=== PATIENT | female | born 1930 | race Caucasian/White ===

== ENCOUNTER 2016-12-07 21:26 | Inpatient (IN) | payer MEDICARE, MEDICAID ==
[~2016-12-07] VITALS: Ht 162.6 cm; Wt 62.6 kg
[2016-12-07] MEDS ORDERED: ASPIRIN 81MG TABLET PO STA (21:44)
[2016-12-07] MEDS ORDERED: FUROSEMIDE 40MG/4ML VIAL IV STA (21:44)
[2016-12-07] MEDS ORDERED: METHYLPREDNISOLONE SOD SUCC 125 MG/2 ML VIAL IV STA (21:44)
[2016-12-07] MEDS ORDERED: LEVOFLOXACIN 750MG PREMIX 150 ML IV ONE (21:45)
[2016-12-07] MEDS ORDERED: IPRATROPIUM/ALBUTEROL 0.5-3(2.5)MG/3ML NEB HHN ONE (21:45)
[2016-12-07 22:36] LABS: BG BASE EXCESS -0.2 mmol/L (-2.0-2.0); BG BILEVEL POS AIRWAY PRESSURE 15/5; BG CARBOXYHEMOGLOBIN 0.8 % (0.5-1.5); BG DEOXYHEMOGLOBIN 3.6 % (0.0-5.0); BG FRACTION INSPIRED OXYGEN 80; BG HCO3 ACT 24.3 mmol/L (22.0-26.0); BG METHEMOGLOBIN 0.2 % (0.0-1.5); BG OXYGEN SATURATION 96.4 % (92.0-98.5); BG OXYHEMOGLOBIN 95.4 % (94.0-97.0); BG PCO2 39.4 mmHg (35.0-45.0); BG PH 7.408 (7.350-7.450); BG PO2 84.1 mmHg (75.0-100.0); BG SAMPLE SITE RIGHT BRACHIAL; BG TOTAL HEMOGLOBIN 14.6 g/dL (12.0-18.0); BG VENT MODE MASK - BIPAP; BG VENT RATE 16 set
[2016-12-07 22:42] LABS: BASOPHILS % 0.4 % (0.0-2.0); EOSINOPHILS % 0.4 % (0.0-5.0); HEMATOCRIT. 43.4 % (36.0-48.0); LYMPHOCYTES % 13.2 % (20.0-50.0); MEAN CORPUSCULAR HEMOGLOBIN 27.1 pg (28.0-32.0); MEAN CORPUSCULAR VOLUME 83.7 fL (81.0-99.0); MEAN PLATELET VOLUME 9.5 fl (7.4-10.4); MONOCYTES % 3.4 % (2.0-8.0); NEUTROPHILS % 82.6 % (40.0-76.0); PLATELET 245 x1000/uL (130-400); RED BLOOD CELL COUNT 5.18 mill/uL (4.2-5.4); RED CELL DISTRIBUTION WIDTH 15.4 % (11.6-14.6)
[2016-12-07 22:45] LABS: INR 1.1; PARTIAL THROMBOPLASTIN TIME 27.3 sec (23.4-31.0); PROTHROMBIN TIME 11.5 sec (9.4-11.6)
[2016-12-07 22:49] LABS: CARBON DIOXIDE 26 mEq/L (21-32); CHLORIDE 103 mEq/L (98-107)
[2016-12-07 22:54] LABS: CREATINE KINASE 108 IU/L (26-192)
[2016-12-07 22:56] LABS: TROPONIN I 0.05 ng/mL (0.00-0.04)
[2016-12-08] VITALS (11 sets, daily range): BP systolic 101–147; BP diastolic 56–95
[2016-12-08] MEDS ORDERED: ONDANSETRON HCL 4MG/2ML VIAL IV ONE (00:30)
[2016-12-08] MEDS ORDERED: MORPHINE SULFATE 4 MG/ML CPJ (NOT FOR IM USE) IV ONE (00:30)
[2016-12-08] MEDS ORDERED: FENTANYL CITRATE/PF 50MCG/ML 2ML VIAL IV ONE (01:00)
[2016-12-08] MEDS: PANTOPRAZOLE 40MG DR TABLET PO SCH (07:10)
[2016-12-08] MEDS: METHYLPREDNISOLONE SOD SUCC 40 MG/ML VIAL IV SCH ×3 (07:10→17:47)
[2016-12-08] MEDS: IPRATROPIUM/ALBUTEROL 0.5-3(2.5)MG/3ML NEB HHN SCH ×3 (08:38→15:53)
[2016-12-08] MEDS ORDERED: ENOXAPARIN 40MG/0.4ML SYR SUBCUT SCH (09:00)
[2016-12-08] MEDS: HYDROCODONE/ACETAMINOPHEN 5/325MG TABLET PO PRN ×3 (09:23→22:04)
[2016-12-08] MEDS ORDERED: ONDANSETRON HCL 4MG/2ML VIAL IV PRN (19:15)
[2016-12-08] MEDS: APIXABAN 5 MG TABLET PO SCH (19:46)
[2016-12-08] MEDS: FUROSEMIDE 40MG/4ML VIAL IV SCH (19:47)
[2016-12-08] MEDS: POTASSIUM CHLORIDE 20MEQ TABLET SR PO SCH (19:47)
[2016-12-08] MEDS: IPRATROPIUM/ALBUTEROL 0.5-3(2.5)MG/3ML NEB INH SCH (20:22)
[2016-12-08] MEDS: DILTIAZEM HCL 60MG TABLET PO SCH (22:00)
[2016-12-08 23:30] LABS: CREATINE KINASE MB FRACTION 2.1 ng/mL (0.5-3.6); TROPONIN I 0.13 ng/mL (0.00-0.04)
[2016-12-09] VITALS (12 sets, daily range): BP systolic 98–129; BP diastolic 50–93
[2016-12-09] MEDS ORDERED: IOHEXOL-350 100 ML BOTTLE ONE (06:00)
[2016-12-09] MEDS: DILTIAZEM HCL 60MG TABLET PO SCH ×3 (06:00→21:56)
[2016-12-09] MEDS ORDERED: SODIUM CHLORIDE 0.9% 10ML VIAL ONE (06:00)
[2016-12-09] MEDS: METHYLPREDNISOLONE SOD SUCC 125 MG/2 ML VIAL IV SCH ×4 (06:16→21:55)
[2016-12-09] MEDS: PANTOPRAZOLE 40MG DR TABLET PO SCH (06:17)
[2016-12-09 06:29] LABS: HEMATOCRIT. 38.4 % (36.0-48.0); HEMOGLOBIN. 12.4 g/dL (12.0-16.0); MEAN CORPUSCULAR HEMOGLOBIN 26.8 pg (28.0-32.0); MEAN CORPUSCULAR VOLUME 82.8 fL (81.0-99.0); MEAN PLATELET VOLUME 9.9 fl (7.4-10.4); PLATELET 236 x1000/uL (130-400); RED BLOOD CELL COUNT 4.64 mill/uL (4.2-5.4); RED CELL DISTRIBUTION WIDTH 15.4 % (11.6-14.6)
[2016-12-09] MEDS: HYDROCODONE/ACETAMINOPHEN 5/325MG TABLET PO PRN ×2 (06:50→18:07)
[2016-12-09 06:57] LABS: CHLORIDE 101 mEq/L (98-107)
[2016-12-09 07:12] LABS: CARBON DIOXIDE 25 mEq/L (21-32); CREATINE KINASE 76 IU/L (26-192); HDL CHOLESTEROL 55 mg/dL (40-59); LDL CHOLESTEROL 47 mg/dL (5-100); T4 FREE 1.29 ng/dL (0.76-1.46)
[2016-12-09] MEDS: IPRATROPIUM/ALBUTEROL 0.5-3(2.5)MG/3ML NEB INH SCH ×4 (08:18→19:59)
[2016-12-09] MEDS: FUROSEMIDE 40MG/4ML VIAL IV SCH (08:55)
[2016-12-09] MEDS: APIXABAN 5 MG TABLET PO SCH ×2 (08:55→18:04)
[2016-12-09] MEDS: POTASSIUM CHLORIDE 20MEQ TABLET SR PO SCH (08:56)
[2016-12-09 14:04] LABS: PLATELET ESTIMATE NORMAL
[2016-12-09] MEDS: LEVOFLOXACIN 750MG PREMIX 150 ML IV SCH (15:26)
[2016-12-09] MEDS ORDERED: LACTULOSE 20G/30ML UDC PO PRN (21:45)
[2016-12-09] MEDS ORDERED: LACTULOSE 20G/30ML UDC PO NR (21:45)
[2016-12-10] VITALS (12 sets, daily range): BP systolic 109–147; BP diastolic 51–66
[2016-12-10] MEDS: DILTIAZEM HCL 60MG TABLET PO SCH ×3 (06:13→21:42)
[2016-12-10] MEDS: METHYLPREDNISOLONE SOD SUCC 125 MG/2 ML VIAL IV SCH ×3 (06:13→21:42)
[2016-12-10] MEDS: PANTOPRAZOLE 40MG DR TABLET PO SCH (06:16)
[2016-12-10] MEDS: IPRATROPIUM/ALBUTEROL 0.5-3(2.5)MG/3ML NEB INH SCH ×4 (08:05→20:02)
[2016-12-10] MEDS: POTASSIUM CHLORIDE 20MEQ TABLET SR PO SCH (09:39)
[2016-12-10] MEDS: FUROSEMIDE 40MG/4ML VIAL IV SCH (09:39)
[2016-12-10] MEDS: APIXABAN 5 MG TABLET PO SCH ×2 (09:39→17:49)
[2016-12-10] MEDS: HYDROCODONE/ACETAMINOPHEN 5/325MG TABLET PO PRN ×2 (09:49→19:50)
[2016-12-11] VITALS (12 sets, daily range): BP systolic 115–147; BP diastolic 53–83
[2016-12-11] MEDS: HYDROCODONE/ACETAMINOPHEN 5/325MG TABLET PO PRN ×2 (04:00→20:00)
[2016-12-11] MEDS: METHYLPREDNISOLONE SOD SUCC 125 MG/2 ML VIAL IV SCH ×3 (05:54→21:26)
[2016-12-11] MEDS: DILTIAZEM HCL 60MG TABLET PO SCH ×3 (05:54→21:26)
[2016-12-11] MEDS: IPRATROPIUM/ALBUTEROL 0.5-3(2.5)MG/3ML NEB INH SCH ×4 (09:06→21:56)
[2016-12-11] MEDS: APIXABAN 5 MG TABLET PO SCH ×2 (09:42→16:14)
[2016-12-11] MEDS: FUROSEMIDE 40MG/4ML VIAL IV SCH (09:42)
[2016-12-11] MEDS: FAMOTIDINE 20MG TABLET PO SCH (09:42)
[2016-12-11] MEDS: POTASSIUM CHLORIDE 20MEQ TABLET SR PO SCH (09:42)
[2016-12-11 15:30] LABS: HEMATOCRIT. 40.5 % (36.0-48.0); HEMOGLOBIN. 13.5 g/dL (12.0-16.0); MEAN CORPUSCULAR HEMOGLOBIN 27.4 pg (28.0-32.0); MEAN CORPUSCULAR VOLUME 82.3 fL (81.0-99.0); MEAN PLATELET VOLUME 9.4 fl (7.4-10.4); PLATELET 269 x1000/uL (130-400); RED BLOOD CELL COUNT 4.92 mill/uL (4.2-5.4); RED CELL DISTRIBUTION WIDTH 15.6 % (11.6-14.6)
[2016-12-11] MEDS: LEVOFLOXACIN 750MG PREMIX 150 ML IV SCH (16:15)
[2016-12-11 22:49] LABS: PLATELET ESTIMATE NORMAL
[2016-12-12] VITALS (12 sets, daily range): BP systolic 87–173; BP diastolic 58–97
[2016-12-12] MEDS: METHYLPREDNISOLONE SOD SUCC 125 MG/2 ML VIAL IV SCH ×3 (05:48→21:49)
[2016-12-12] MEDS: DILTIAZEM HCL 60MG TABLET PO SCH ×3 (05:49→21:52)
[2016-12-12 06:17] LABS: CARBON DIOXIDE 29 mEq/L (21-32); CHLORIDE 100 mEq/L (98-107)
[2016-12-12 06:32] LABS: HEMATOCRIT. 41.3 % (36.0-48.0); HEMOGLOBIN. 13.6 g/dL (12.0-16.0); MEAN CORPUSCULAR HEMOGLOBIN 27.2 pg (28.0-32.0); MEAN CORPUSCULAR VOLUME 82.7 fL (81.0-99.0); MEAN PLATELET VOLUME 9.4 fl (7.4-10.4); PLATELET 257 x1000/uL (130-400); RED BLOOD CELL COUNT 4.99 mill/uL (4.2-5.4); RED CELL DISTRIBUTION WIDTH 15.8 % (11.6-14.6)
[2016-12-12] MEDS: IPRATROPIUM/ALBUTEROL 0.5-3(2.5)MG/3ML NEB INH SCH ×4 (09:32→21:08)
[2016-12-12] MEDS: FUROSEMIDE 40MG/4ML VIAL IV SCH (10:37)
[2016-12-12] MEDS: FAMOTIDINE 20MG TABLET PO SCH (10:37)
[2016-12-12] MEDS: POTASSIUM CHLORIDE 20MEQ TABLET SR PO SCH (10:37)
[2016-12-12] MEDS: APIXABAN 5 MG TABLET PO SCH ×2 (10:37→18:27)
[2016-12-12] MEDS: HYDROCODONE/ACETAMINOPHEN 5/325MG TABLET PO PRN (15:50)
[2016-12-12 15:53] LABS: BG BASE EXCESS 5.4 mmol/L (-2.0-2.0); BG CARBOXYHEMOGLOBIN 0.6 % (0.5-1.5); BG DEOXYHEMOGLOBIN 5.4 % (0.0-5.0); BG FRACTION INSPIRED OXYGEN 21; BG HCO3 ACT 28.4 mmol/L (22.0-26.0); BG METHEMOGLOBIN 0.2 % (0.0-1.5); BG OXYGEN SATURATION 94.6 % (92.0-98.5); BG OXYHEMOGLOBIN 93.8 % (94.0-97.0); BG PCO2 36.5 mmHg (35.0-45.0); BG PH 7.509 (7.350-7.450); BG PO2 70.4 mmHg (75.0-100.0); BG SAMPLE SITE RIGHT BRACHIAL; BG TOTAL HEMOGLOBIN 15.8 g/dL (12.0-18.0); BG VENT MODE ROOM AIR
[2016-12-12 16:30] LABS: PLATELET ESTIMATE NORMAL
[2016-12-13] VITALS (10 sets, daily range): BP systolic 121–159; BP diastolic 56–78
[2016-12-13] MEDS: DILTIAZEM HCL 60MG TABLET PO SCH ×2 (06:09→14:00)
[2016-12-13] MEDS: METHYLPREDNISOLONE SOD SUCC 125 MG/2 ML VIAL IV SCH ×2 (06:09→14:00)
[2016-12-13] MEDS: IPRATROPIUM/ALBUTEROL 0.5-3(2.5)MG/3ML NEB INH SCH ×3 (07:33→15:53)
[2016-12-13] MEDS: POTASSIUM CHLORIDE 20MEQ TABLET SR PO SCH (10:01)
[2016-12-13] MEDS: APIXABAN 5 MG TABLET PO SCH (10:01)
[2016-12-13] MEDS: FUROSEMIDE 40MG/4ML VIAL IV SCH (10:01)
[2016-12-13] MEDS: FAMOTIDINE 20MG TABLET PO SCH (10:01)
[2016-12-13] MEDS ORDERED: LEVOFLOXACIN 250MG TABLET PO SCH (15:00)
[2016-12-14] MEDS ORDERED: LEVO750T46 PO (16:15)
[2016-12-14] MEDS ORDERED: FURO-151 PO (16:15)
[2016-12-14] MEDS ORDERED: ELIQUIS (16:15)
== END 2016-12-13 17:00 | disposition home or self-care (01) | DRG 291 ==
LOC: ER 22:04 → 5EST 12-08 00:11 → EDBEDREQ 12-08 00:48 → ENRESERV 12-08 01:01 → 5EST 12-08 03:16
PROVIDERS: ADMIT Internal Medicine; ATTEND Internal Medicine
DX: I11.0 Hypertensive heart disease with heart failure (principal); J96.00 Acute respiratory failure, unspecified whether with hypoxia or hypercapnia; J44.1 Chronic obstructive pulmonary disease with (acute) exacerbation; R65.10 Systemic inflammatory response syndrome (SIRS) of non-infectious origin without acute organ dysfunction; I27.2 Other secondary pulmonary hypertension; I48.2 Chronic atrial fibrillation; I50.41 Acute combined systolic (congestive) and diastolic (congestive) heart failure; I73.9 Peripheral vascular disease, unspecified; Z86.73 Personal history of transient ischemic attack (TIA), and cerebral infarction without residual deficits; Z87.891 Personal history of nicotine dependence; Z88.6 Allergy status to analgesic agent; Z88.0 Allergy status to penicillin
CPT/HCPCS: 36415; 36600; 71010; 71275; 80048; 80053; 80061; 82375; 82550; 82553; 82805; 83605; 83690; 83880; 84439; 84443; 84484; 85025; 85610; 85730; 87040; 93005; 93306; 93970; 94620; 94640; 94660; 94664; 96365; 96375; 99291; A4216; A6261; C1893; J1650; J1940; J1956; J2270; J2405; J2920; J2930; J3010; J7050; J7620; Q9967; A4315

== ENCOUNTER 2016-12-14 16:11 | Inpatient (IN) | payer MEDICARE, MEDICAID ==
[~2016-12-14] VITALS: Ht 162.6 cm; Wt 61.0 kg
[2016-12-14] MEDS ORDERED: LEVO750T46 PO (16:15)
[2016-12-14] MEDS ORDERED: FURO-151 PO (16:15)
[2016-12-14] MEDS ORDERED: ELIQUIS (16:15)
[2016-12-14 17:31] LABS: MEAN CORPUSCULAR HEMOGLOBIN 26.9 pg (28.0-32.0); MEAN CORPUSCULAR VOLUME 82.4 fL (81.0-99.0); MEAN PLATELET VOLUME 9.8 fl (7.4-10.4); PLATELET 331 x1000/uL (130-400); RED BLOOD CELL COUNT 5.94 mill/uL (4.2-5.4); RED CELL DISTRIBUTION WIDTH 15.7 % (11.6-14.6)
[2016-12-14 17:33] LABS: CHLORIDE 101 mEq/L (98-107)
[2016-12-14 17:34] LABS: INR 1.2; PROTHROMBIN TIME 12.7 sec (9.4-11.6)
[2016-12-14 17:43] LABS: CARBON DIOXIDE 28 mEq/L (21-32)
[2016-12-14 18:22] LABS: PLATELET ESTIMATE NORMAL
[2016-12-14] MEDS ORDERED: ONDANSETRON HCL 4MG/2ML VIAL IV PRN (19:00)
[2016-12-14] MEDS ORDERED: HYDROMORPHONE HCL/PF 2MG/ML CPJ IV ONE (19:00)
[2016-12-14 23:15] VITALS: BP_SYST 157; BP_DIAS 81; BP_DIAS 88
[2016-12-15] VITALS (21 sets, daily range): BP systolic 119–181; BP diastolic 72–120
[2016-12-15] MEDS ORDERED: ONDANSETRON HCL 4MG/2ML VIAL IV PRN
[2016-12-15] MEDS ORDERED: MVI, ADULT NO.1 10 ML, FOLIC ACID 1 MG, THIAMINE HCL 100 MG in SODIUM CHLORIDE 0.9% 1,0... IV SCH ×4
[2016-12-15] MEDS ORDERED: DEXT 5%/0.45% NACL KCL 20MEQ/L 1,000 ML IV ONE (02:00)
[2016-12-15 06:19] LABS: HEMATOCRIT. 47.1 % (36.0-48.0); HEMOGLOBIN. 15.2 g/dL (12.0-16.0); MEAN CORPUSCULAR HEMOGLOBIN 26.6 pg (28.0-32.0); MEAN CORPUSCULAR VOLUME 82.4 fL (81.0-99.0); MEAN PLATELET VOLUME 9.5 fl (7.4-10.4); PLATELET 290 x1000/uL (130-400); RED BLOOD CELL COUNT 5.72 mill/uL (4.2-5.4); RED CELL DISTRIBUTION WIDTH 15.2 % (11.6-14.6)
[2016-12-15 06:37] LABS: AMYLASE 220 IU/L (25-115); CARBON DIOXIDE 29 mEq/L (21-32); CHLORIDE 105 mEq/L (98-107); HDL CHOLESTEROL 47 mg/dL (40-59); LDL CHOLESTEROL 63 mg/dL (5-100)
[2016-12-15] MEDS: BLOOD SUGAR DIAGNOSTIC STRIP TEST SCH ×4 (07:35→23:30)
[2016-12-15] MEDS: INSULIN LISPRO 100 UNITS/ML SUBCUT SCH ×4 (07:36→23:30)
[2016-12-15] MEDS ORDERED: DEXTROSE 50% WATER 50ML SYRINGE IV PRN (07:45)
[2016-12-15] MEDS ORDERED: ENOXAPARIN 40MG/0.4ML SYR SUBCUT SCH (09:00)
[2016-12-15 09:45] LABS: PLATELET ESTIMATE NORMAL
[2016-12-15] MEDS: FAMOTIDINE 20MG/2ML VIAL IV SCH (10:19)
[2016-12-15] MEDS ORDERED: DIATR MEGLU/DIATRIZOATE SOLN 30ML PO NR (12:45)
[2016-12-15] MEDS: SODIUM CHLORIDE 0.9% INJ 3ML FLUSH IVF SCH ×3 (13:12→21:39)
[2016-12-15] MEDS ORDERED: SODIUM CHLORIDE 0.9% 10ML VIAL ONE (14:00)
[2016-12-15] MEDS ORDERED: DIATR MEGLU/DIATRIZOATE SOLN 120ML ONE (14:00)
[2016-12-15] MEDS ORDERED: IOHEXOL-300 100 ML BOTTLE ONE (14:00)
[2016-12-15 17:02] LABS: CLARITY URINE CLOUDY (CLEAR); COLOR URINE DARK YELLOW (YELLOW); GLUCOSE URINE NEGATIVE (NEGATIVE); KETONES URINE NEGATIVE (NEGATIVE); LEUKOCYTE ESTERASE URINE 3+ (NEGATIVE); NITRITE URINE NEGATIVE (NEGATIVE); OCCULT BLOOD URINE 2+ (NEGATIVE); PH URINE 5.5 (4.5-8.0); PROTEIN URINE 1+ (NEGATIVE); SPECIFIC GRAVITY URINE 1.025 (1.005-1.030)
[2016-12-15] MEDS ORDERED: METHYLPREDNISOLONE SOD SUCC 125 MG/2 ML VIAL IV NR (18:26)
[2016-12-15] MEDS ORDERED: DILTIAZEM HCL 5MG/ML 5ML VIAL IV NR (18:32)
[2016-12-15] MEDS ORDERED: METHYLPREDNISOLONE SOD SUCC 40 MG/ML VIAL ONE (18:36)
[2016-12-15] MEDS: IPRATROPIUM/ALBUTEROL 0.5-3(2.5)MG/3ML NEB HHN SCH ×2 (18:43→20:45)
[2016-12-15] MEDS: HYDROMORPHONE HCL/PF 2MG/ML CPJ IV PRN (21:37)
[2016-12-15] MEDS ORDERED: CLONIDINE 0.1MG TABLET PO PRN (22:00)
[2016-12-15] MEDS ORDERED: DILTIAZEM HCL 5MG/ML 5ML VIAL IV SCH (22:00)
[2016-12-15] MEDS ORDERED: ENOXAPARIN 60MG/0.6ML SYR SUBCUT SCH (23:15)
[2016-12-15] MEDS: DILTIAZEM HCL 125 MG in DEXT 5% WATER 100 ML IV PRN (23:24)
[2016-12-16] VITALS (90 sets, daily range): BP systolic 102–154; BP diastolic 50–91
[2016-12-16] MEDS: INSULIN LISPRO 100 UNITS/ML SUBCUT SCH ×4 (05:09→23:48)
[2016-12-16] MEDS: BLOOD SUGAR DIAGNOSTIC STRIP TEST SCH ×4 (05:09→23:47)
[2016-12-16] MEDS: SODIUM CHLORIDE 0.9% INJ 3ML FLUSH IVF SCH ×3 (05:09→22:10)
[2016-12-16 05:52] LABS: HEMATOCRIT. 43.4 % (36.0-48.0); HEMOGLOBIN. 13.9 g/dL (12.0-16.0); MEAN CORPUSCULAR HEMOGLOBIN 26.7 pg (28.0-32.0); MEAN CORPUSCULAR VOLUME 83.2 fL (81.0-99.0); MEAN PLATELET VOLUME 9.9 fl (7.4-10.4); PLATELET 235 x1000/uL (130-400); RED BLOOD CELL COUNT 5.21 mill/uL (4.2-5.4); RED CELL DISTRIBUTION WIDTH 15.7 % (11.6-14.6)
[2016-12-16 06:31] LABS: CHLORIDE 108 mEq/L (98-107)
[2016-12-16 06:50] LABS: CARBON DIOXIDE 25 mEq/L (21-32); PHOSPHORUS 3.2 mg/dL (2.5-4.9); T4 FREE 1.19 ng/dL (0.76-1.46)
[2016-12-16] MEDS: IPRATROPIUM/ALBUTEROL 0.5-3(2.5)MG/3ML NEB HHN SCH ×4 (08:32→20:19)
[2016-12-16] MEDS: FAMOTIDINE 20MG/2ML VIAL IV SCH (10:37)
[2016-12-16] MEDS: ENOXAPARIN 60MG/0.6ML SYR SUBCUT SCH ×2 (10:37→21:09)
[2016-12-16 12:51] LABS: PLATELET ESTIMATE NORMAL
[2016-12-16] MEDS: DILTIAZEM HCL 125 MG in DEXT 5% WATER 100 ML IV PRN (17:28)
[2016-12-17] VITALS (50 sets, daily range): BP systolic 106–177; BP diastolic 33–98
[2016-12-17] MEDS: DEXT 5%/0.45% NACL 1000ML 1,000 ML IV SCH ×2 (00:32→20:00)
[2016-12-17] MEDS ORDERED: LEVOFLOXACIN 500MG PREMIX 100 ML IV SCH (02:00)
[2016-12-17] MEDS: HYDROMORPHONE HCL/PF 2MG/ML CPJ IV PRN ×3 (04:29→15:04)
[2016-12-17] MEDS: SODIUM CHLORIDE 0.9% INJ 3ML FLUSH IVF SCH ×3 (05:00→21:19)
[2016-12-17] MEDS: BLOOD SUGAR DIAGNOSTIC STRIP TEST SCH ×4 (05:00→23:06)
[2016-12-17] MEDS: INSULIN LISPRO 100 UNITS/ML SUBCUT SCH ×4 (05:04→23:06)
[2016-12-17 06:22] LABS: HEMATOCRIT. 43.8 % (36.0-48.0); HEMOGLOBIN. 13.9 g/dL (12.0-16.0); MEAN CORPUSCULAR HEMOGLOBIN 26.5 pg (28.0-32.0); MEAN CORPUSCULAR VOLUME 83.5 fL (81.0-99.0); RED BLOOD CELL COUNT 5.25 mill/uL (4.2-5.4)
[2016-12-17 06:23] LABS: MEAN PLATELET VOLUME 10.2 fl (7.4-10.4); PLATELET 196 x1000/uL (130-400); RED CELL DISTRIBUTION WIDTH 15.5 % (11.6-14.6)
[2016-12-17 08:00] LABS: CARBON DIOXIDE 28 mEq/L (21-32); CHLORIDE 106 mEq/L (98-107)
[2016-12-17] MEDS: IPRATROPIUM/ALBUTEROL 0.5-3(2.5)MG/3ML NEB HHN SCH ×4 (08:12→20:46)
[2016-12-17] MEDS: FAMOTIDINE 20MG/2ML VIAL IV SCH (08:35)
[2016-12-17] MEDS: ENOXAPARIN 40MG/0.4ML SYR SUBCUT SCH (08:36)
[2016-12-17 11:01] LABS: NUCLEATED RED BLOOD CELLS 1 /100 WBC
[2016-12-17 11:02] LABS: PLATELET ESTIMATE NORMAL
[2016-12-17] MEDS: DILTIAZEM HCL 30MG TABLET PO SCH (23:06)
[2016-12-18] VITALS (34 sets, daily range): BP systolic 97–153; BP diastolic 49–90
[2016-12-18] MEDS: LEVOFLOXACIN 250MG PREMIX 50 ML IV SCH (02:53)
[2016-12-18] MEDS: INSULIN LISPRO 100 UNITS/ML SUBCUT SCH ×3 (05:44→17:43)
[2016-12-18] MEDS: SODIUM CHLORIDE 0.9% INJ 3ML FLUSH IVF SCH ×3 (05:44→21:55)
[2016-12-18] MEDS: BLOOD SUGAR DIAGNOSTIC STRIP TEST SCH ×3 (05:44→17:44)
[2016-12-18] MEDS: DILTIAZEM HCL 30MG TABLET PO SCH ×3 (05:44→22:11)
[2016-12-18] MEDS: IPRATROPIUM/ALBUTEROL 0.5-3(2.5)MG/3ML NEB HHN SCH ×4 (08:29→20:19)
[2016-12-18] MEDS: FAMOTIDINE 20MG/2ML VIAL IV SCH (08:40)
[2016-12-18] MEDS: HYDROMORPHONE HCL/PF 2MG/ML CPJ IV PRN ×2 (08:41→17:47)
[2016-12-18] MEDS: ENOXAPARIN 40MG/0.4ML SYR SUBCUT SCH (08:42)
[2016-12-18] MEDS ORDERED: GUAIFENESIN 200MG/10ML SUGAR FREE UDC PO PRN (13:00)
[2016-12-18 17:04] LABS: CHLORIDE 101 mEq/L (98-107)
[2016-12-18 17:08] LABS: CARBON DIOXIDE 28 mEq/L (21-32); HEMATOCRIT. 40.9 % (36.0-48.0); MEAN CORPUSCULAR HEMOGLOBIN 26.4 pg (28.0-32.0); MEAN CORPUSCULAR VOLUME 83.2 fL (81.0-99.0); MEAN PLATELET VOLUME 9.3 fl (7.4-10.4); PLATELET 216 x1000/uL (130-400); RED BLOOD CELL COUNT 4.91 mill/uL (4.2-5.4); RED CELL DISTRIBUTION WIDTH 15.5 % (11.6-14.6)
[2016-12-18 18:00] LABS: PLATELET ESTIMATE NORMAL
[2016-12-18] MEDS ORDERED: DILTIAZEM HCL 30MG TABLET PO SCH (23:00)
[2016-12-19] VITALS (12 sets, daily range): BP systolic 103–147; BP diastolic 42–73
[2016-12-19] MEDS: BLOOD SUGAR DIAGNOSTIC STRIP TEST SCH ×4 (00:08→16:28)
[2016-12-19] MEDS: DEXT 5%/0.45% NACL 1000ML 1,000 ML IV SCH (00:14)
[2016-12-19] MEDS: LEVOFLOXACIN 250MG PREMIX 50 ML IV SCH (03:05)
[2016-12-19] MEDS: INSULIN LISPRO 100 UNITS/ML SUBCUT SCH ×4 (06:00→16:27)
[2016-12-19] MEDS: SODIUM CHLORIDE 0.9% INJ 3ML FLUSH IVF SCH ×2 (06:29→12:42)
[2016-12-19] MEDS: DILTIAZEM HCL 30MG TABLET PO SCH ×2 (06:29→13:42)
[2016-12-19] MEDS: ENOXAPARIN 40MG/0.4ML SYR SUBCUT SCH (08:17)
[2016-12-19] MEDS: FAMOTIDINE 20MG/2ML VIAL IV SCH (08:18)
[2016-12-19] MEDS: HYDROMORPHONE HCL/PF 2MG/ML CPJ IV PRN ×2 (08:27→17:02)
[2016-12-19] MEDS: IPRATROPIUM/ALBUTEROL 0.5-3(2.5)MG/3ML NEB HHN SCH ×4 (08:34→20:25)
== END 2016-12-19 21:00 | DRG 871 ==
LOC: ER 17:53 → INTOOBSV 19:54 → OBSVTOIN 19:54 → 6EST 19:54 → ENRESERV 21:13 → MICUNO 12-15 18:54 → 3WST 12-18 22:45
PROVIDERS: ADMIT Ophthalmology; ATTEND Ophthalmology
DX: A41.9 Sepsis, unspecified organism (principal); K85.90 Acute pancreatitis without necrosis or infection, unspecified; E46 Unspecified protein-calorie malnutrition; I48.0 Paroxysmal atrial fibrillation; J44.1 Chronic obstructive pulmonary disease with (acute) exacerbation; I27.2 Other secondary pulmonary hypertension; K74.60 Unspecified cirrhosis of liver; N39.0 Urinary tract infection, site not specified; I10 Essential (primary) hypertension; I48.2 Chronic atrial fibrillation; I73.9 Peripheral vascular disease, unspecified; E86.0 Dehydration; I70.8 Atherosclerosis of other arteries; N28.1 Cyst of kidney, acquired; K80.20 Calculus of gallbladder without cholecystitis without obstruction; M51.36 Other intervertebral disc degeneration, lumbar region; R06.1 Stridor; Z68.23 Body mass index [BMI] 23.0-23.9, adult; Z88.0 Allergy status to penicillin; Z88.5 Allergy status to narcotic agent; Z90.49 Acquired absence of other specified parts of digestive tract; Z86.73 Personal history of transient ischemic attack (TIA), and cerebral infarction without residual deficits; Z79.2 Long term (current) use of antibiotics; Z79.899 Other long term (current) drug therapy
CPT/HCPCS: 36415; 74000; 74178; 80048; 80053; 80061; 81001; 82150; 82962; 83690; 84100; 84439; 84443; 85025; 85610; 94640; 94660; 94664; 96374; 96375; 99285; A4216; J1170; J1650; J1815; J1956; J2405; J2920; J2930; J3411; J3490; J7030; J7060; J7620; Q9963; Q9967

== ENCOUNTER 2017-03-28 13:42 | Emergency (ER) | payer MEDICARE, MEDICAID ==
[~2017-03-28] VITALS: Ht 154.9 cm; Wt 63.0 kg
[~2017-03-28 13:42] MED LIST: ELIQUIS; FURO-151 PO; LEVO750T46 PO
[2017-03-28] MEDS ORDERED: SODIUM CHLORIDE 0.9% 1,000 ML IV ONE (14:30)
[2017-03-28 14:57] LABS: BASOPHILS % 0.6 % (0.0-2.0); EOSINOPHILS % 1.9 % (0.0-5.0); HEMATOCRIT. 39.8 % (36.0-48.0); HEMOGLOBIN. 12.5 g/dL (12.0-16.0); LYMPHOCYTES % 20.1 % (20.0-50.0); MEAN CORPUSCULAR HEMOGLOBIN 25.8 pg (28.0-32.0); MEAN CORPUSCULAR VOLUME 81.8 fL (81.0-99.0); MEAN PLATELET VOLUME 8.7 fl (7.4-10.4); MONOCYTES % 9.6 % (2.0-8.0); NEUTROPHILS % 67.8 % (40.0-76.0); PLATELET 279 x1000/uL (130-400); RED BLOOD CELL COUNT 4.87 mill/uL (4.2-5.4); RED CELL DISTRIBUTION WIDTH 18.2 % (11.6-14.6)
[2017-03-28 14:59] LABS: CLARITY URINE TURBID (CLEAR); COLOR URINE YELLOW (YELLOW); KETONES URINE NEGATIVE (NEGATIVE); LEUKOCYTE ESTERASE URINE 3+ (NEGATIVE); NITRITE URINE POSITIVE (NEGATIVE); OCCULT BLOOD URINE 3+ (NEGATIVE); PROTEIN URINE 1+ (NEGATIVE); SPECIFIC GRAVITY URINE 1.017 (1.005-1.030); UROBILINOGEN URINE 0.2 E.U./dL (0.2-1.0)
[2017-03-28 15:04] LABS: INR 1.2; PROTHROMBIN TIME 12.4 sec (9.4-11.6)
[2017-03-28 15:11] LABS: CARBON DIOXIDE 28 mEq/L (21-32); CHLORIDE 108 mEq/L (98-107)
[2017-03-28 15:40] LABS: *AMPHETAMINES SCREEN URINE NEGATIVE (NEGATIVE); *BARBITURATES SCREEN URINE NEGATIVE (NEGATIVE); *BENZODIAZEPINES SCREEN URINE NEGATIVE (NEGATIVE); *COCAINE SCREEN URINE NEGATIVE (NEGATIVE); CANNABINOID URINE SCREEN NEGATIVE (NEGATIVE); METHADONE URINE SCREEN NEGATIVE (NEGATIVE); OPIATES URINE SCREEN NEGATIVE (NEGATIVE); PHENCYCLIDINE URINE SCREEN NEGATIVE (NEGATIVE)
[2017-03-28 15:43] LABS: ETHANOL BLOOD < 10 mg/dL
[2017-03-28 16:03] LABS: VALPROIC ACID < 3.0 ug/mL (50-100)
[2017-03-28] MEDS ORDERED: CEFTRIAXONE 1 G PREMIX 50 ML IV ONE (16:15)
[2017-03-28 17:23] VITALS: BP 178/80
== END 2017-03-28 17:24 | disposition home or self-care (01) ==
LOC: ER 13:47
DX: N39.0 Urinary tract infection, site not specified (principal); J44.9 Chronic obstructive pulmonary disease, unspecified; Z86.73 Personal history of transient ischemic attack (TIA), and cerebral infarction without residual deficits; Z88.0 Allergy status to penicillin; Z88.5 Allergy status to narcotic agent; Z79.01 Long term (current) use of anticoagulants
CPT/HCPCS: 36415; 80053; 80165; 80185; 80305; 81001; 83690; 85025; 85610; 87077; 87086; 87186; 96365; 99284; G0482; J0696; J7040; J7030